=== PATIENT | male | born 1990 | race Two or more races ===

== ENCOUNTER 2023-11-08 11:56 | Outpatient (AMB) | payer BC, SELFPAY ==
--- NOTE | 2023-11-08 11:59 | A.OFFPC_ITS ---
Vital Signs 11/08/23 12:00 Height 6 ft Weight 244 lb BMI 33.1 BP 132/72 Blood Pressure Location Lt brachial Position Sitting Pulse 74 Pulse Source Pulse Oximeter Pulse Oximetry (%) 98 Oxygen Delivery Method Room Air Intake Visit Reasons: Est Care/Requesting Annual PE Intake Note: pt is here for PE Area Development Consultant Required: No Accompanied by: Self / Same As Patient Allergies No Known Allergies Allergy (Verified 11/08/23 12:11) Medication List - Last Reconciled 11/08/23 by CONSTANZA Garcia candesartan 16 mg PO DAILY Tobacco use date assessed: 11/08/23 Dental Screening Dental Screen Date: 11/08/23 Did you have a dental visit in the last 12 months?: Yes Did you have a dental problem in the last 6 months where you did not have access to dental care?: No Was dental information given to patient?: Patient has dentist HPI HPI Comments History of Present Illness Details Patient is a 33-year-old male who I am meeting for the 1st time. Patient is here for physical exam. Past medical history of history for hypertension which is currently controlled. Patient is up-to-date with influenza vaccine. Patient will send information from previous provider. Patient has no complaints at this time. [facility] Medical History Hydronephrosis Surgical History No pertinent past surgical history Family History Mother Hypertension Father No problems noted. Social History Housing: Apartment Alcohol intake: never Patient Tobacco Use Status: Never used Tobacco e-Cigarette/Vaping Use: Never Used service: No Current occupational status: employed Current occupation: [employer] Current occupational exposures/hazards: No Cognitive needs: No Hearing needs: No Vision needs: No Questionnaire PHQ-9 Over the last 2 weeks, how often have you been bothered by any of the following problems? 1. Little interest or pleasure in doing things: not at all 2. Feeling down, depressed, or hopeless: not at all 3. Trouble falling or staying asleep, or sleeping too much: not at all 4. Feeling tired or having little energy: not at all 5. Poor appetite or overeating: not at all 6. Feeling bad about yourself - or that you are a failure or have let yourself or your family down: not at all 7. Trouble concentrating on things, such as reading the newspaper or watching television: not at all 8. Moving or speaking so slowly that other people could have noticed. Or the opposite - being so fidgety or restless that you have been moving around a lot more than usual: not at all 9. Thoughts that you would be better off or of hurting yourself in some way: not at all Total score: 0 Depression Screening Interpretation: Negative Depression Screening Done: Yes 21808 - PHQ-9 Billing: Yes Source: Developed by Drs. Tien Estrada, Jaida Barros, Missael Jacobson and colleagues, with an educational guilherme from [employer]. Thrive Questionnaire Date Thrive assessed: 11/08/23 I am a: Patient What is your living situation today?: I have a steady place to live Within the past 12 months, did the food you bought not last and you didn't have the money to get more?: Never true Within the past 12 months, did you worry whether your food would run out before you got money to buy more?: Never true Do you have trouble paying for medicines?: No Do you have trouble getting transportation to medical appointments?: No Do you have trouble paying your heating and electricity bill?: No Do you have trouble taking care of your child, family member or friend?: No Do you have trouble with day-to-day activities such as bathing, preparing meals, shopping, managing finances, etc.?: No Are you currently unemployed and looking for a job?: No Are you interested in more education?: No Please select the resources that you would like help with: None Currently or been in a relationship where the following occur: no concerns reported THRIVE Score: 0 AUDIT C Alcohol Use Questionnaire (AUDIT-C) 1. How often do you have a drink containing alcohol?: Never 3. How often do you have six or more drinks on one occasion?: Never Total Score: 0 Score Reviewed/Action Taken: Yes ANTHONY-7 AMB Questionnaire ANTHONY-7 Date ANTHONY - 7 assessed: 11/08/23 Feeling nervous, anxious, or on edge: 0 = Not at all Not being able to stop or control worryin = Not at all Worrying too much about different things: 0 = Not at all Trouble relaxin = Not at all Being so restless that it is hard to sit still: 0 = Not at all Becoming easily annoyed or irritable: 0 = Not at all Feeling afraid as if something awful might happen: 0 = Not at all Total ANTHONY-7 score (0-4 normal; 5-9 mild; 10-14 moderate; 15-21 severe): 0 Source: Developed by Drs. Tien Estrada, Jaida Barros, Missael Jacobson and colleagues, with an educational guilherme from [employer]. ANTHONY-7 Assessment Billing ANTHONY-7 Assessment Tool: ANTHONY-7 Assessment 82764 Review of Systems Const All systems reviewed & are unremarkable except as noted in HPI and below Physical exam (Primary Care) Vital Signs: Last Vital Signs Pulse 74 11/08/23 12:00 BP 132/72 11/08/23 12:00 Pulse Ox 98 11/08/23 12:00 Oxygen Delivery Method Room Air 11/08/23 12:00 Care Plan Goal for BP management: Blood pressure stable BMI result Body Mass Index 33.1 Tobacco/Smoking Status: Tobacco use Status Tobacco use date assessed 11/08/23 11/08/23 12:06 Patient Tobacco Use Status Never used Tobacco 11/08/23 12:06 e-Cigarette/Vaping Use Never Used 11/08/23 12:06 PHQ-9: PHQ-9 Score PHQ-9: Total score 0 11/08/23 12:06 Depression Screening Interpretation: Negative Thrive Assessment: Date of Thrive Assessment Date Thrive assessed 11/08/23 11/08/23 12:06 Currently or been in a relationship where the following occur: no concerns reported Forms completed: Health Care Proxy (Patient taking for home to complete) Const General: cooperative and no acute distress Nutritional Appearance: overweight Orientation/consciousness: patient oriented x3 Limitations: no limitations HENMT Head: Yes normal to inspection, Yes normocephalic and Yes atraumatic Ears: hearing grossly normal bilaterally and TM's normal bilaterally General nose exam: Normal external nose present Face and sinus: Yes normal facial exam Mouth: Normal oral and palatal mucosa present Eyes General: appearance normal, both eyes and all related structures Sclerae: sclerae normal Pupils: Equal, round and reactive pupils present EOM: EOMs intact bilaterally Direct Ophthalmoscopy: normal light reflex and no photophobia Neck Neck: Yes normal visual inspection, Yes full ROM and Yes no lymphadenopathy Thyroid: Thyroid normal Carotids: normal carotid upstroke Lymphatic: no lymphadenopathy noted Chest Chest palpation & inspection: normal inspection of the chest Resp Auscultation: clear to auscultation bilaterally Cardio Rate: regular rate Rhythm: regular rhythm Heart sounds: S1 normal heart sound present and S2 normal heart sound present Peripheral pulses: Peripheral pulses 2+ throughout GI Inspection: Yes normal to inspection Palpation (GI): Soft to palpation and nontender Auscultation: normal bowel sounds General: Yes no CVA tenderness Back/Spine/Pelvis Back: no CVA tenderness Cervical Spine: normal cervical lordosis Thoracic/Lumbar Spine: thoracic and lumbar spine normal to inspection Skin General skin exam: no rashes or lesions noted Neuro General: patient oriented x3, CN's II-XI intact bilaterally and deep tendon reflexes 2+ bilaterally Cranial nerves: Yes CN's II-XII intact bilaterally and Yes Equal, round and reactive pupils present Gait exam (Neuro): Normal gait present Motor exam (neuro): 5/5 motor strength present throughout Romberg Test: Negative Extrem General: Yes normal to inspection and Yes full ROM Psych Attitude: cooperative Thought process: Normal thought process present Thought content: Normal thought content present Insight: Good insight present (Psych) Judgement: Good judgement present (Psych) Assessment and Plan Assessment & Plan (1) Encounter for physical examination: Comment: Will draw fasting labs. Code(s): Z00.00 - Encounter for general adult medical examination without abnormal findings (2) Hypertension: Comment: Patient has hypertension currently controlled, currently taking Candesartan. Code(s): I10 - Essential (primary) hypertension Qualifiers: Hypertension type: primary hypertension Qualified Code(s): I10 - Essential (primary) hypertension Plan: Draw labs Plan Follow-up for any problems. Orders: Orders Vitamin D 25-OH (D2 and D3) 11/09/23 Z13.21 - Encounter for screening for nutritional disorder Vitamin B6 11/09/23 Z13.21 - Encounter for screening for nutritional disorder Vitamin B12 11/09/23 Z13.21 - Encounter for screening for nutritional disorder UA CC w/rflx Micro + Cult 11/09/23 Z13.89 - Encounter for screening for other disorder TSH reflex Free T4 11/09/23 Z13.29 - Encounter for screening for other suspected endocrine disorder Comprehensive Met. Panel 11/09/23 Z91.89 - Other specified personal risk factors, not elsewhere classified Complete Blood Count Auto Diff 11/09/23 Z13.0 - Encounter for screening for diseases of the blood and blood-forming organs and certain disorders involving the immune mechanism Lipid Panel 11/09/23 Z13.220 - Encounter for screening for lipoid disorders Hemoglobin A1c 11/09/23 Z13.1 - Encounter for screening for diabetes mellitus Coding Level of Care Code New Pt Prev Care [id number] Diagnoses Encounter for physical examination Z00.00 Primary hypertension I10 Hypertension type: primary hypertension Additional Codes ANTHONY-7 Assessment Billing - ANTHONY-7 Assessment Tool: ANTHONY-7 Assessment [id number] ([id number]) Time Spent (min) 26
[2023-11-08 12:00] VITALS: BP 132/72; PULSE 74; O2SAT 98; BMI 33.1
== END 2023-11-08 14:02 | disposition home or self-care (01) ==
LOC: HO.HMGC 11:56
PROVIDERS: Visit Provider Nurse Practitioner Primary Care
DX: Z00.00 Encounter for general adult medical examination without abnormal findings (principal); I10 Essential (primary) hypertension
CPT/HCPCS: 99385

== ENCOUNTER 2023-11-09 07:27 | Outpatient (REF) | payer BC, SELFPAY ==
[2023-11-09 10:30] LABS: MANUAL DIFF FLAG NO
[2023-11-09 10:35] LABS: Basophils Percent Auto 0.4 % (0-2); Eosinophils Absolute Auto 0.1 X10*3/uL (0.0-0.4); Eosinophils Percent Auto 1.7 % (0-4); Hematocrit 44.1 % (42.0-52.0); Hemoglobin 14.1 g/dl (14.0-18.0); Imm Gran Abs Auto 0.01 X10*3/uL (0.00-0.03); Imm Gran Pct Auto 0.1 % (0.0-0.4); Lymphocytes Absolute Auto 3.5 X10*3/uL (1.2-4.9); Lymphocytes Percent Auto 46.4 % (20-40); Mean Corpuscular Hemoglobin 27.6 pg (27.0-33.0); Mean Corpuscular Volume 86.3 fL (80.0-98.0); Mean Platelet Volume 10.5 fL (9.4-12.4); Monocytes Absolute Auto 0.6 X10*3/uL (0.1-1.2); Monocytes Percent Auto 7.5 % (2-11); Neutrophils Absolute Auto 3.3 x10*3/uL (2.0-8.3); Neutrophils Percent Auto 43.9 % (45-73); Platelet Count 242 X10*3/uL (160-400); Red Blood Count 5.11 X10*6/uL (4.60-5.80); Red Cell Distribution Width 12.8 % (11.0-16.0); White Blood Count 7.4 X10*3/uL (4.8-10.8)
[2023-11-09 10:44] LABS: Appearance Urine Turbid; Color Urine Yellow; Glucose Urine UA Negative (Negative); Leukocyte Esterase Urine Large (3+) (Negative); Nitrite Urine Negative (Negative); PH 5.5 (5.0-9.0); Specific Gravity - Urine 1.015 (1.005-1.025); UMIC TRIGGER UACC YES; Urine Blood Small (1+) (Negative); Urine Ketones Negative (Negative); Urine Protein Trace mg/dL (Neg-Trace)
[2023-11-09 10:44] LABS: Estimated Average Glucose 111 mg/dL; Hemoglobin A1c % 5.5 % (<6.0)
[2023-11-09 10:56] LABS: Alanine Aminotransferase 30 U/L (0-40); Albumin Level 4.2 g/dL (3.5-5.0); Alkaline Phosphatase 105 U/L (39-117); Anion Gap 13 (12-20); Aspartate Amino Transferase 23 U/L (5-37); Bilirubin Total 0.3 mg/dL (0.0-1.0); Blood Urea Nitrogen 12 mg/dL (9-16); Calcium 9.7 mg/dL (8.4-10.2); Carbon Dioxide 24 mmol/L (22-29); Chloride 107 mmol/L (96-108); Cholesterol 143 mg/dL (<200); Estimated Glomerular Filt Rate > 60; Glucose Random 101 mg/dL (60-115); HDL Cholesterol 38 mg/dL (>40); LDL Cholesterol Calculated 75 mg/dL (<100); Potassium 3.9 mmol/L (3.3-5.1); Sodium 140 mmol/L (135-145); Total Protein 7.9 g/dL (6.5-8.0); Triglycerides 152 mg/dL (<150)
[2023-11-09 11:10] LABS: Bacteria Urine 1+ (None Seen); Hyaline Casts Urine 0-2 /LPF (0-2); RBC Urine 0-2 /HPF (0-2); Squamous Epithelial Cell Urine 0-2 /HPF (0-2); UACC Culture Trigger YES; WBC Urine >50 /HPF (0-5)
[2023-11-09 11:13] LABS: Vitamin B12 243 pg/mL (200-900)
[2023-11-13 16:13] LABS: Vitamin D 25-OH, D2 <4 ng/mL; Vitamin D 25-OH, D3 10 ng/mL; Vitamin D 25-OH, Total 10 ng/mL (30-100)
[2023-11-16 06:24] LABS: Vitamin B6 9.5 ng/mL (2.1-21.7)
== END 2023-11-09 07:28 | disposition home or self-care (01) ==
LOC: HO.HMGCLDS 07:27
PROVIDERS: Visit Provider Nurse Practitioner Primary Care
DX: Z13.21 Encounter for screening for nutritional disorder (principal); Z13.89 Encounter for screening for other disorder; Z91.89 Other specified personal risk factors, not elsewhere classified; Z13.0 Encounter for screening for diseases of the blood and blood-forming organs and certain disorders involving the immune mechanism; Z13.29 Encounter for screening for other suspected endocrine disorder; Z13.1 Encounter for screening for diabetes mellitus; Z13.220 Encounter for screening for lipoid disorders; Z00.00 Encounter for general adult medical examination without abnormal findings
CPT/HCPCS: 36415; 80053; 80061; 81001; 82306; 82607; 83036; 84207; 84443; 85025; 87086; 87088

== ENCOUNTER → 2024-05-09 15:33 | Outpatient (BNVA) | payer BC, SELFPAY | PROVIDERS: PCP Internal Medicine ==

== ENCOUNTER → 2024-07-25 08:06 | Outpatient (BNVA) | payer OTHER, SELFPAY | PROVIDERS: PCP Internal Medicine ==

== ENCOUNTER 2024-09-05 07:28 | Outpatient (REF) | payer OTHER, SELFPAY ==
[2024-09-05 10:35] LABS: Appearance Urine Cloudy; Color Urine Yellow; Glucose Urine UA Negative (Negative); Leukocyte Esterase Urine Large (3+) (Negative); Nitrite Urine Negative (Negative); PH 5.5 (5.0-9.0); Specific Gravity - Urine 1.015 (1.005-1.025); UMIC TRIGGER UACC YES; Urine Blood Trace (Negative); Urine Ketones Negative (Negative); Urine Protein Negative (Neg-Trace)
[2024-09-05 10:50] LABS: Bacteria Urine None Seen (None Seen); Hyaline Casts Urine 0-2 /LPF (0-2); RBC Urine 0-2 /HPF (0-2); Squamous Epithelial Cell Urine 0-2 /HPF (0-2); UACC Culture Trigger YES; WBC Clumps Urine Present; WBC Urine >50 /HPF (0-5)
== END 2024-09-05 07:29 | disposition home or self-care (01) ==
LOC: HO.HMGCLDS 07:28
PROVIDERS: PCP Internal Medicine; Visit Provider Internal Medicine
DX: R30.0 Dysuria (principal)
CPT/HCPCS: 81001; 87086

== ENCOUNTER 2024-12-05 10:58 | Outpatient (AMB) | payer OTHER, SELFPAY ==
--- NOTE | 2024-12-05 11:04 | MHC.PC.OV ---
Vital Signs 12/05/24 11:14 12/05/24 11:35 Weight 267 lb 2 oz BP 148/102 H 135/80 Blood Pressure Location Rt brachial Lt brachial Position Sitting Sitting Respiration 20 Pulse 97 Pulse Source Pulse Oximeter Temp 97.5 F Temp Source Oral Pulse Oximetry (%) 94 Oxygen Delivery Method Room Air Intake Visit Reasons: PE Intake Note: Pt is here for PE. Allergies No Known Allergies Allergy (Verified 12/05/24 11:37) Medication List - Last Reconciled 12/05/24 by Lou Jacobs MD candesartan 16 mg PO DAILY clotrimazole-betamethasone 1-0.05 % 1 appl topical BID Tobacco use date assessed: 12/05/24 Dental Screening Dental Screen Date: 12/05/24 Did you have a dental visit in the last 12 months?: Yes Did you have a dental problem in the last 6 months where you did not have access to dental care?: No Was dental information given to patient?: Patient has dentist HPI PE HPI Details 34-year-old male with history of hypertension currently on candesartan 16 mg daily, has hypertriglyceridemia, and history of vitamin-D deficiency, here today for his physical exam. - He reports his blood pressure has been inconsistent, with a reading today of 130/[address] - Despite consistent exercise for three months, he has not observed the expected weight loss. 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 -has history of elevated triglycerides on last blood check as well as low vitamin-D levels, does not take any vitamin-D supplements and has been avoiding the sun -complains of recurrent slightly scaly erythematous rash on the side of his nose and mouth, has been prescribed clotrimazole-betamethasone cream by his drawer in jacquard loom in the past, uses it only sparingly and as needed, would like a refill. [facility] Medical History (Updated 12/05/24 @ 12:05 by Lou Jacobs MD) Facial dermatitis History of ureteropelvic junction repair Hx of recurrent urinary tract infection Labile hypertension Vitamin D deficiency Hypertriglyceridemia Essential hypertension Hydronephrosis Surgical History (Updated 12/05/24 @ 11:54 by Lou Jacobs MD) History of pyeloplasty No pertinent past surgical history Family History Mother Hypertension Father No problems noted. Social History (Updated 12/06/24 @ 23:29 by Lou Jacobs MD) Housing: Apartment Alcohol intake: never Patient Tobacco Use Status: Never used Tobacco e-Cigarette/Vaping Use: Never Used service: No Current occupational status: employed Current occupation: [employer] Current occupational exposures/hazards: No Cognitive needs: No Hearing needs: No Vision needs: No Questionnaire PHQ-9 Over the last 2 weeks, how often have you been bothered by any of the following problems? 1. Little interest or pleasure in doing things: not at all 2. Feeling down, depressed, or hopeless: not at all 3. Trouble falling or staying asleep, or sleeping too much: not at all 4. Feeling tired or having little energy: several days 5. Poor appetite or overeating: several days 6. Feeling bad about yourself - or that you are a failure or have let yourself or your family down: not at all 7. Trouble concentrating on things, such as reading the newspaper or watching television: not at all 8. Moving or speaking so slowly that other people could have noticed. Or the opposite - being so fidgety or restless that you have been moving around a lot more than usual: not at all 9. Thoughts that you would be better off or of hurting yourself in some way: not at all Total score: 2 Depression Screening Interpretation: Negative Depression Screening Done: Yes 69061 - PHQ-9 Billing: Yes Source: Developed by Drs. Tien Estrada, Jaida Barros, Missael Jacobson and colleagues, with an educational guilherme from [employer] ([email or web address]). Thrive Questionnaire Date Thrive assessed: 11/28/24 I am a: Patient What is your living situation today?: I choose not to answer this question Within the past 12 months, did the food you bought not last and you didn't have the money to get more?: Sometimes True Within the past 12 months, did you worry whether your food would run out before you got money to buy more?: Sometimes True Do you have trouble paying for medicines?: I choose not to answer this question Do you have trouble getting transportation to medical appointments?: I choose not to answer this question Do you have trouble paying your heating and electricity bill?: I choose not to answer this question Do you have trouble taking care of your child, family member or friend?: No Do you have trouble with day-to-day activities such as bathing, preparing meals, shopping, managing finances, etc.?: I choose not to answer this question Are you currently unemployed and looking for a job?: I choose not to answer this question Are you interested in more education?: I choose not to answer this question Please select the resources that you would like help with: Food and Utilities Currently or been in a relationship where the following occur: I choose not to answer THRIVE Score: 2 AUDIT C Alcohol Use Questionnaire (AUDIT-C) 1. How often do you have a drink containing alcohol?: Never 2. How many drinks containing alcohol do you have on a typical day when you are drinking?: 1 or 2 3. How often do you have six or more drinks on one occasion?: Never Total Score: 0 ANTHONY-7 AMB Questionnaire ANTHONY-7 Date ANTHONY - 7 assessed: 11/08/23 Feeling nervous, anxious, or on edge: 0 = Not at all Not being able to stop or control worryin = Several days Worrying too much about different things: 1 = Several days Trouble relaxin = Several days Being so restless that it is hard to sit still: 0 = Not at all Becoming easily annoyed or irritable: 0 = Not at all Feeling afraid as if something awful might happen: 0 = Not at all Total ANTHONY-7 score (0-4 normal; 5-9 mild; 10-14 moderate; 15-21 severe): 3 Source: Developed by Drs. Tien Estrada, Jaida Barros, Missael Jacobson and colleagues, with an educational guilherme from [employer] ([email or web address]). Review of Systems Const Denies body aches, Denies fatigue, Denies headache(s) and Denies weakness Eyes Denies change in vision ENT Denies dizziness, Denies headache(s), Denies nasal congestion, Denies nasal discharge and Denies sore throat Card Denies chest pain, Denies lightheadedness, Denies palpitations and Denies dyspnea Resp Denies chest congestion, Denies cough, Denies dyspnea and Denies wheezing GI Denies abdominal pain, Denies change in bowel habits and Denies heartburn Denies hematuria, Denies difficulty urinating, Denies dysuria, Denies urinary frequency and Denies urinary urgency Musc Reports no additional complaints Skin/Breast Reports as per HPI Neuro Denies dizziness, Denies headache(s) and Denies weakness Psych Reports no additional complaints Endo Denies fatigue, Denies polydipsia, Denies polyuria and Denies palpitations Rashel/Lymph Denies easy bruising Aller/Immun Denies seasonal rhinorrhea and Denies wheezing Physical exam (Primary Care) Vital Signs: Last Vital Signs Temp 97.5 F 12/05/24 11:14 Pulse 97 12/05/24 11:14 Resp 20 12/05/24 11:14 BP 135/80 12/05/24 11:35 Pulse Ox 94 12/05/24 11:14 Oxygen Delivery Method Room Air 12/05/24 11:14 Care Plan Goal for BP management: Referred for 24 hour blood pressure monitoring to nephrology clinic Tobacco/Smoking Status: Tobacco use Status Tobacco use date assessed 12/05/24 12/05/24 11:20 Patient Tobacco Use Status Never used Tobacco 12/05/24 11:06 e-Cigarette/Vaping Use Never Used 12/05/24 11:06 PHQ-9: PHQ-9 Score PHQ-9: Total score 2 12/06/24 23:24 Depression Screening Interpretation: Negative Thrive Assessment: Date of Thrive Assessment Date Thrive assessed 11/28/24 12/05/24 11:06 Currently or been in a relationship where the following occur: I choose not to answer Advance Care Planning discussion: Completed/Scanned Date of discussion: 12/05/24 Who was present: Patient Forms completed: Health Care Proxy Time spent: 16-45 minutes Actual minutes spent: 2 Const General: no acute distress and alert Orientation/consciousness: patient oriented x3 HENMT Head: Yes normocephalic Ears: external ears normal, TM's normal bilaterally and EAC's normal General nose exam: Normal external nose present and No nasal discharge present Face and sinus: Yes face symmetric Mouth: Normal oral and palatal mucosa present, lip normal, tongue normal, oropharynx normal and moist mucous membranes Eyes General: appearance normal, both eyes and all related structures Eyelids: Yes eyelids normal Conjunctivae: conjunctivae normal Sclerae: sclerae normal Pupils: Equal, round and reactive pupils present EOM: EOMs intact bilaterally Neck Neck: Yes full ROM, Yes no lymphadenopathy and Yes supple Thyroid: Thyroid normal Resp Effort & Inspection: normal respiratory effort and able to speak in complete sentences Auscultation: clear to auscultation bilaterally Cardio Rate: regular rate Rhythm: regular rhythm Heart sounds: S1 normal heart sound present and S2 normal heart sound present GI Palpation (GI): Soft to palpation, nontender, no guarding and no masses Auscultation: normal bowel sounds General: Yes no CVA tenderness Male General Exam: Yes normal external exam and No hernia Scrotum: no inguinal hernias Back/Spine/Pelvis Back: no CVA tenderness and No back tenderness Skin General skin exam: no rashes or lesions noted Neuro General: patient oriented x3, gait normal, moves all extremities, Normal light touch and pain sensation, no focal motor deficits and CN's II-XI intact bilaterally Cranial nerves: Yes Equal, round and reactive pupils present Cognition (Neuro): normal cognition Gait exam (Neuro): Normal gait present Motor exam (neuro): 5/5 motor strength present throughout Extrem General: Yes normal to inspection, Yes full ROM, Yes no joint enlargement, Yes no pedal edema and Yes normal gait Psych Appearance: grossly normal and well kempt Mental Status: mental status grossly normal Speech and movement: Normal speech and movement present Affect: normal affect Attitude: cooperative Thought process: Normal thought process present Thought content: Normal thought content present Coding Level of Care Code Est Pt Prev Care 18-39y([id number]) Diagnoses Essential hypertension I10 Annual visit for general adult medical examination with abnormal findings Z00.01 Labile hypertension R09.89 Hypertriglyceridemia E78.1 Vitamin D deficiency E55.9 Hx of recurrent urinary tract infection Z87.440 Facial dermatitis L30.9 Additional Codes PHQ-9 - 40399 - PHQ-9 Billing: Yes ([id number]) Vital Signs *Quality* - Advance Care Planning discussion: Completed/Scanned ([id number]) Vital Signs *Quality* - Time spent: 16-45 minutes ([id number]) Assessment & Plan Assessment & Plan (1) Essential hypertension: Code(s): I10 - Essential (primary) hypertension Category: Medical Plan: Has been noted to have labile hypertension currently on candesartan. Referred to Nephrology Clinic for possible 24 hour blood pressure monitoring (2) Annual visit for general adult medical examination with abnormal findings: Code(s): Z00.01 - Encounter for general adult medical examination with abnormal findings Plan: Will check appropriate labs. Recommended dental visit every 6 months and regular eye exams, at least every 2 years. Take adequate calcium in diet and vitamin-D 3 at 2000 IU per cap once a day, in addition to weight-bearing exercises to help maintain good muscle tone and weight control. - Continue working on reducing sodium in your diet to help lower blood pressure. - Maintain regular exercise routine but consider modifications with a drug and alcohol counsellor. - Increase sun exposure for 15 minutes daily without sunscreen for vitamin D improvement. - Contact the office if no appointment is scheduled after ten days for nephrology referral or if you are not contacted for lab result discussions. (3) Labile hypertension: Code(s): R09.89 - Other specified symptoms and signs involving the circulatory and respiratory systems Category: Medical Plan: Referred to nephrology clinic for further evaluation management, may need a 24 hour ambulatory blood pressure monitor (4) Hypertriglyceridemia: Code(s): E78.1 - Pure hyperglyceridemia Category: Medical Plan: fasting lab orders to check lipids . Recommended adherence to low-cholesterol diet and regular exercise, at least 30 minutes 3 to 4 times a week. Advised patient to make healthy food choices, eat more fruits, vegetables, whole grains, wild caught fish and low-fat dairy. Limit amount of meat and fried or fatty food products, as well as processed foods and fast foods. (5) Vitamin D deficiency: Code(s): E55.9 - Vitamin D deficiency, unspecified Category: Medical Plan: Ordered vitamin-D level checked (6) Hx of recurrent urinary tract infection: Code(s): Z87.440 - Personal history of urinary (tract) infections Category: Medical Plan: Ordered a urinalysis with reflex culture and sensitivity (7) Facial dermatitis: Code(s): L30.9 - Dermatitis, unspecified Category: Medical Plan: Prescription sent for clotrimazole-betamethasone cream 1-0.05% applied sparingly to affected areas once a day for no more than 10 days at a time as needed Plan Patient was informed and verbally consented to the use of an Ambien scribe for Clinic note documentation for this visit Orders: Orders Complete Blood Count Auto Diff 12/05/24 E55.9 - Vitamin D deficiency, unspecified, E78.1 - Pure hyperglyceridemia, R09.89 - Other specified symptoms and signs involving the circulatory and respiratory systems Basic Metabolic Panel Fasting 12/05/24 E55.9 - Vitamin D deficiency, unspecified, E78.1 - Pure hyperglyceridemia, R09.89 - Other specified symptoms and signs involving the circulatory and respiratory systems Vitamin D 25-OH Total 12/05/24 E55.9 - Vitamin D deficiency, unspecified, E78.1 - Pure hyperglyceridemia, R09.89 - Other specified symptoms and signs involving the circulatory and respiratory systems Vitamin B12 and Folate 12/05/24 E55.9 - Vitamin D deficiency, unspecified, E78.1 - Pure hyperglyceridemia, R09.89 - Other specified symptoms and signs involving the circulatory and respiratory systems Aspartate Amino Transferase 12/05/24 E55.9 - Vitamin D deficiency, unspecified, E78.1 - Pure hyperglyceridemia, R09.89 - Other specified symptoms and signs involving the circulatory and respiratory systems Alanine Aminotransferase 12/05/24 E55.9 - Vitamin D deficiency, unspecified, E78.1 - Pure hyperglyceridemia, R09.89 - Other specified symptoms and signs involving the circulatory and respiratory systems UA CC w/rflx Micro + Cult 12/05/24 Z87.440 - Personal history of urinary (tract) infections Lipid Panel 12/05/24 E55.9 - Vitamin D deficiency, unspecified, E78.1 - Pure hyperglyceridemia, R09.89 - Other specified symptoms and signs involving the circulatory and respiratory systems Hemoglobin A1c 12/05/24 E55.9 - Vitamin D deficiency, unspecified, E78.1 - Pure hyperglyceridemia, R09.89 - Other specified symptoms and signs involving the circulatory and respiratory systems TSH reflex Free T4 12/05/24 E55.9 - Vitamin D deficiency, unspecified, E78.1 - Pure hyperglyceridemia, R09.89 - Other specified symptoms and signs involving the circulatory and respiratory systems Referrals Nephrology Referral R09.89 - Other specified symptoms and signs involving the circulatory and respiratory systems Medications: New clotrimazole-betamethasone 1-0.05 % 1 appl topical BID 10 days 15 grams 1RF L30.9 - Dermatitis, unspecified
[2024-12-05 11:14] VITALS: BP 148/102; PULSE 97; RESP 20; TEMP 36.4; O2SAT 94
[2024-12-05 11:35] VITALS: BP 135/80
== END 2024-12-05 12:10 | disposition home or self-care (01) ==
PROVIDERS: PCP Internal Medicine; Visit Provider Internal Medicine
DX: I10 Essential (primary) hypertension (principal); Z00.01 Encounter for general adult medical examination with abnormal findings; R09.89 Other specified symptoms and signs involving the circulatory and respiratory systems; E78.1 Pure hyperglyceridemia; E55.9 Vitamin D deficiency, unspecified; Z87.440 Personal history of urinary (tract) infections; L30.9 Dermatitis, unspecified; Z00.00 Encounter for general adult medical examination without abnormal findings

== ENCOUNTER → 2024-12-05 10:58 | Outpatient (BNVA) | payer OTHER, SELFPAY | PROVIDERS: PCP Internal Medicine; Visit Provider Internal Medicine | DX: Z00.01 Encounter for general adult medical examination with abnormal findings (principal); E78.1 Pure hyperglyceridemia; E55.9 Vitamin D deficiency, unspecified; I10 Essential (primary) hypertension; R09.89 Other specified symptoms and signs involving the circulatory and respiratory systems; L30.9 Dermatitis, unspecified; Z87.440 Personal history of urinary (tract) infections | CPT/HCPCS: 96127 ==

== ENCOUNTER 2024-12-08 07:14 | Outpatient (REF) | payer OTHER, SELFPAY ==
[2024-12-08 10:05] LABS: MANUAL DIFF FLAG NO
[2024-12-08 10:22] LABS: Basophils Percent Auto 0.3 % (0-2); Eosinophils Absolute Auto 0.1 X10*3/uL (0.0-0.4); Eosinophils Percent Auto 1.1 % (0-4); Hematocrit 42.5 % (42.0-52.0); Hemoglobin 13.7 g/dl (14.0-18.0); Imm Gran Abs Auto 0.02 X10*3/uL (0.00-0.03); Imm Gran Pct Auto 0.2 % (0.0-0.4); Lymphocytes Absolute Auto 3.1 X10*3/uL (1.2-4.9); Lymphocytes Percent Auto 35.9 % (20-40); Mean Corpuscular HGB Conc 32.2 g/dl (31.0-36.0); Mean Corpuscular Hemoglobin 27.6 pg (27.0-33.0); Mean Corpuscular Volume 85.7 fL (80.0-98.0); Mean Platelet Volume 10.9 fL (9.4-12.4); Monocytes Absolute Auto 0.6 X10*3/uL (0.1-1.2); Monocytes Percent Auto 6.3 % (2-11); Neutrophils Absolute Auto 4.9 x10*3/uL (2.0-8.3); Neutrophils Percent Auto 56.2 % (45-73); Platelet Count 240 X10*3/uL (160-400); Red Blood Count 4.96 X10*6/uL (4.60-5.80); White Blood Count 8.8 X10*3/uL (4.8-10.8)
[2024-12-08 10:23] LABS: Estimated Average Glucose 111 mg/dL; Hemoglobin A1C 130.0449 umol/L; Hemoglobin A1c % 5.5 % (<6.0); Total Hemoglobin (HGBA1C) 3536.4128 umol/L
[2024-12-08 10:31] LABS: Appearance Urine Turbid; Color Urine Yellow; Glucose Urine UA Negative (Negative); Leukocyte Esterase Urine Large (3+) (Negative); Nitrite Urine Negative (Negative); PH 5.5 (5.0-9.0); UMIC TRIGGER UACC YES; Urine Blood Small (1+) (Negative); Urine Ketones Negative (Negative); Urine Protein Trace mg/dL (Neg-Trace)
[2024-12-08 10:43] LABS: Bacteria Urine Trace (None Seen); Hyaline Casts Urine 0-2 /LPF (0-2); RBC Urine 0-2 /HPF (0-2); Squamous Epithelial Cell Urine 0-2 /HPF (0-2); UACC Culture Trigger YES; WBC Clumps Urine Present; WBC Urine >50 /HPF (0-5)
[2024-12-08 10:49] LABS: Alanine Aminotransferase 38 U/L (0-40); Anion Gap 13 (12-20); Aspartate Amino Transferase 33 U/L (5-37); Blood Urea Nitrogen 15 mg/dL (9-16); Carbon Dioxide 24 mmol/L (22-29); Chloride 109 mmol/L (96-108); Cholesterol 144 mg/dL (<200); Estimated Glomerular Filt Rate > 60; Glucose Fasting 97 mg/dL (60-99); HDL Cholesterol 38 mg/dL (>40); LDL Cholesterol Calculated 75 mg/dL (<100); Potassium 3.6 mmol/L (3.3-5.1); Sodium 142 mmol/L (135-145); Triglycerides 157 mg/dL (<150)
[2024-12-08 10:50] LABS: TSH reflex Free T4 2.62 uIU/mL (0.32-4.0); Vitamin D 25-OH Total 29.7 ng/mL (>30)
[2024-12-08 11:04] LABS: Folate 8.9 ng/mL (> or = 4.0); Vitamin B12 230 pg/mL (200-900)
== END 2024-12-08 07:15 | disposition home or self-care (01) ==
LOC: HO.HMGCLDS 07:14
PROVIDERS: PCP Internal Medicine; Visit Provider Internal Medicine
DX: R09.89 Other specified symptoms and signs involving the circulatory and respiratory systems (principal); E55.9 Vitamin D deficiency, unspecified; E78.1 Pure hyperglyceridemia
CPT/HCPCS: 36415; 80048; 80061; 81001; 82306; 82607; 82746; 83036; 84443; 84450; 84460; 85025; 87086; 87088

== ENCOUNTER 2024-12-11 08:34 | Outpatient (AMB) | payer OTHER, SELFPAY ==
[2024-12-11 10:04] VITALS: BMI 37.3
--- NOTE | 2024-12-11 10:04 | MHC.PC.OV ---
Vital Signs 12/11/24 10:04 Height 5 ft 11 in Weight 267 lb 2 oz BMI 37.3 Intake Visit Reasons: lab results Allergies No Known Allergies Allergy (Verified 12/05/24 11:37) Medication List - Last Reconciled 12/11/24 by Kris Choe MD candesartan 16 mg PO DAILY clotrimazole-betamethasone 1-0.05 % 1 appl topical BID 10 days Tobacco use date assessed: 12/05/24 Dental Screening Dental Screen Date: 12/05/24 HPI lab results HPI Details History - The patient is a 34-year-old male presenting with abnormal urinalysis results. - The patient has had recurrent urinary tract infections since childhood following a surgical procedure known as a pyeloplasty. - The latest urinalysis indicated signs of infection and the presence of a possible fungal component, which the patient may not feel due to the lack of symptoms commonly associated with UTIs. - The patient has been treated with antibiotics previously, with the last treatment being in early 2022. - The patient reports a history of asymptomatic abnormalities in urine tests, necessitating repeat antibiotics. - Additionally, the patient has noted significant weight gain, despite attempts at managing this through diet and exercise without positive results. Medical History: - Recurrent Urinary Tract Infections - History of childhood pyeloplasty Surgical History: - Pyeloplasty (childhood) Medications: - Bactrim (sulfamethoxazole) for urinary tract infections as per previous prescriptions Social History: - Reports engaging in regular morning exercise for 60 to 75 minutes - Attempts healthy eating, avoiding junk food and bread, focusing on fruits and vegetables - Reports difficulty in losing weight despite lifestyle modifications Diagnostic Results: - Urinalysis: Abnormal, indicating infection and possible fungal involvement Problem List - Recurrent Urinary Tract Infections - Fungal Infection (possible penile candidiasis) - Obesity (BMI 37.3) Patient Instructions - Take prescribed antibiotics for five days. - On day six, take the antifungal medication. - Repeat the urine test at your nephrology apt - Follow up with the scheduled kidney specialist appointment. - Engage with a dietary consultation as arranged. - we will set time time with nurse navigator for diet plan to lose wt Review of Systems - General: No fever no chills - Neurological: No headaches no dizziness - Ear nose throat: No sore throat no hearing difficulty no ear pain - Cardiovascular: No syncope, no chest pain, no palpitations - Gastrointestinal: No nausea vomiting or diarrhea [facility] Medical History (Updated 12/11/24 @ 11:19 by Kris Choe MD) Facial dermatitis History of ureteropelvic junction repair Hx of recurrent urinary tract infection Labile hypertension Vitamin D deficiency Hypertriglyceridemia Essential hypertension Hydronephrosis Surgical History (Updated 12/11/24 @ 11:19 by Kris Choe MD) History of pyeloplasty No pertinent past surgical history Family History Mother Hypertension Father No problems noted. Social History Housing: Apartment Alcohol intake: never Patient Tobacco Use Status: Never used Tobacco e-Cigarette/Vaping Use: Never Used service: No Current occupational status: employed Current occupation: [email or web address] Current occupational exposures/hazards: No Cognitive needs: No Hearing needs: No Vision needs: No Questionnaire Thrive Questionnaire Date Thrive assessed: 11/28/24 ANTHONY-7 AMB Questionnaire ANTHONY-7 Date ANTHONY - 7 assessed: 11/08/23 Source: Developed by Drs. Tien Estrada, Jaida Barros, Missael Jacobson and colleagues, with an educational guilherme from [employer]. Physical exam (Primary Care) BMI result Body Mass Index 37.3 Tobacco/Smoking Status: Tobacco use Status Tobacco use date assessed 12/05/24 12/11/24 10:06 Patient Tobacco Use Status Never used Tobacco 12/11/24 10:06 e-Cigarette/Vaping Use Never Used 12/11/24 10:06 Thrive Assessment: Date of Thrive Assessment Date Thrive assessed 11/28/24 12/11/24 10:06 Telehealth Telehealth Telehealth Platform: [facility] Location of provider rendering services: practice address Location of patient: address on file Patient Identification confirmed using: Name, : Yes Telehealth method: video Patient verbally consented to treatment: Yes Patient verbally consented to billing insurance company: Yes Patient informed of any privacy concerns related to visit: Yes Coding Level of Care Code Tele Est Pt Level 3 (19809) Diagnoses Recurrent UTI N39.0 Yeast UTI B37.49 History of pyeloplasty Z98.890; Z87.448 Time Spent (min) 20 Assessment & Plan Assessment & Plan (1) Recurrent UTI: Code(s): N39.0 - Urinary tract infection, site not specified Category: Medical (2) Yeast UTI: Code(s): B37.49 - Other urogenital candidiasis Category: Medical (3) History of pyeloplasty: Comment: left at age 9 y/o Code(s): Z98.890 - Other specified postprocedural states; Z87.448 - Personal history of other diseases of urinary system Category: Surgical Plan History - The patient is a 34-year-old male presenting with abnormal urinalysis results. - The patient has had recurrent urinary tract infections since childhood following a surgical procedure known as a pyeloplasty. - The latest urinalysis indicated signs of infection and the presence of a possible fungal component, which the patient may not feel due to the lack of symptoms commonly associated with UTIs. - The patient has been treated with antibiotics previously, with the last treatment being in early 2022. - The patient reports a history of asymptomatic abnormalities in urine tests, necessitating repeat antibiotics. - Additionally, the patient has noted significant weight gain, despite attempts at managing this through diet and exercise without positive results. Medical History: - Recurrent Urinary Tract Infections - History of childhood pyeloplasty Surgical History: - Pyeloplasty (childhood) Medications: - Bactrim (sulfamethoxazole) for urinary tract infections as per previous prescriptions Social History: - Reports engaging in regular morning exercise for 60 to 75 minutes - Attempts healthy eating, avoiding junk food and bread, focusing on fruits and vegetables - Reports difficulty in losing weight despite lifestyle modifications Diagnostic Results: - Urinalysis: Abnormal, indicating infection and possible fungal involvement Problem List - Recurrent Urinary Tract Infections - Fungal Infection (possible penile candidiasis) - Obesity (BMI 37.3) Patient Instructions - Take prescribed antibiotics for five days. - On day six, take the antifungal medication. - Repeat the urine test at your nephrology apt - Follow up with the scheduled kidney specialist appointment. - Engage with a dietary consultation as arranged. - we will set time time with nurse navigator for diet plan to lose wt Medications: Changed From sulfamethoxazole-trimethoprim 800-160 mg 1 tab PO Q12H 20 tabs 0RF To sulfamethoxazole-trimethoprim 800-160 mg (Bactrim DS) 1 tab PO Q12H 10 tabs 0RF 5 days From fluconazole 150 mg PO Q3D 2 tabs 0RF To fluconazole take it after finishing antibiotic 150 mg PO Q3D 1 tab 0RF 1 day
== END 2024-12-11 11:08 | disposition home or self-care (01) ==
LOC: HO.HMCC 08:34
PROVIDERS: PCP Internal Medicine; Visit Provider Internal Medicine
DX: N39.0 Urinary tract infection, site not specified (principal); Z98.890 Other specified postprocedural states; Z87.448 Personal history of other diseases of urinary system

== ENCOUNTER → 2024-12-11 08:34 | Outpatient (BNVA) | payer OTHER, SELFPAY | PROVIDERS: PCP Internal Medicine; Visit Provider Internal Medicine | DX: Z13.89 Encounter for screening for other disorder (principal) ==

== ENCOUNTER 2024-12-19 13:27 | Outpatient (AMB) | payer OTHER, SELFPAY ==
--- NOTE | 2024-12-19 13:29 | HO.NEPHOV ---
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 Hypertension since past 2 years; states its normal at home increases when under stress or doctors office. He also has hypokalemia with potassium of 3.6. has a history of pyeloplasty when he was a child. works as a [employer] [facility] Medical History Facial dermatitis History of ureteropelvic junction repair Hx of recurrent urinary tract infection Labile hypertension Vitamin D deficiency Hypertriglyceridemia Essential hypertension Hydronephrosis Surgical History History of pyeloplasty No pertinent past surgical history Family History Mother Hypertension Father No problems noted. Social History Housing: Apartment Alcohol intake: never Patient Tobacco Use Status: Never used Tobacco e-Cigarette/Vaping Use: Never Used service: No Current occupational status: employed Current occupation: [employer] Current occupational exposures/hazards: No Cognitive needs: No Hearing needs: No Vision needs: No Review of Systems Const Details: Const Denies body aches, Denies chills, Denies excessive sweating and Denies fatigue Eyes Denies blurry vision and Denies change in vision ENT Denies bleeding gums and Denies change in voice Card Denies chest pain and Denies leg ulcers Resp Denies cough and Denies excessive phlegm production GI Denies abdominal pain and Denies bloating Denies hematuria, Denies urinary frequency and Denies difficulty voiding Musc Denies abnormal gait Neuro Denies Neuro-related abnormal movements, Denies abnormal gait and Denies behavioral changes Psych Denies behavioral changes and Denies change in appetite Endo Denies change in body appearance, Denies cold intolerance, Denies excessive sweating and Denies fatigue Physical Exam Vital Signs: BMI result Body Mass Index 36.3 General: Not in any acute distress, comfortable, sitting on the chair Nutritional Appearance: well nourished and overweight Eyes: appearance normal, both eyes and all related structures; Alignment and Position: alignment normal and position normal Neck: No lymphadenopathy, no thyromegaly Resp: bilateral air entry equal, no added sounds present Cardio: Regular rate, regular rhythm; Heart sounds: S1 normal heart sound present and S2 normal heart sound present, no edema GI: soft, nontender, no guarding, no hepatosplenomegaly : bladder normal to inspection, bladder normal to palpation, no renal angle tenderness Skin: no rashes or lesions noted and elasticity normal Neuro: oriented to person, oriented to place, oriented to time and moves all extremities Results Reviewed Nephrology Results: Hgb 13.7 g/dl (14.0-18.0) L 12/08/24 WBC 8.8 X10*3/uL (4.8-10.8) 12/08/24 Plt Count 240 X10*3/uL (160-400) 12/08/24 Sodium 142 mmol/L (135-145) 12/08/24 Potassium 3.6 mmol/L (3.3-5.1) 12/08/24 Chloride 109 mmol/L (96-108) H 12/08/24 Carbon Dioxide 24 mmol/L (22-29) 12/08/24 BUN 15 mg/dL (9-16) 12/08/24 Creatinine 0.79 mg/dL (0.5-1.4) 12/08/24 Calcium 9.0 mg/dL (8.4-10.2) 12/08/24 Urine Protein Trace mg/dL (Neg-Trace) 12/08/24 Assessment & Plan Assessment & Plan (1) Labile hypertension: Code(s): R09.89 - Other specified symptoms and signs involving the circulatory and respiratory systems Category: Medical (2) Essential hypertension: Code(s): I10 - Essential (primary) hypertension Category: Medical Plan Patient regularly checks his blood pressure at his home and is usually around: 110- 120s at office is usually around:130/70mmhg. Currently he is on candesartan and has good compliance to medication. Mom has HTN, one of the two brothers has HTN. He has a smoker, h/o no CAD, no stroke, lipids are under control, no family history of coronary artery disease. His relative risk reduction of major cardiovascular events is low with 10 year risk of 1.3% and 30 years risk of 8.9%. plan: - target SBP <140/90 given his low risk for CVD. - will stop candesartan as it will help with better interpretation of lab works, will get 24 hr blood pressure monitoring next week off medication. - weight reduction, low salt diet, smoking cessation - will get plasma aldosterone and renin levels to look for the ratio off candesartan, TSH ordered - will get renal artery dopplers to rule out renal artery stenosis is renin levels are increased. - will plan for 24 hr sodium, aldosterone and creatinine excretion if needed in the future - avoid any NSAID intake, excessive decongestant intake, herbal preparations intake Orders: Orders AMB 24 HR B/P Monitor PLACEMENT 1 Week R09.89 - Other specified symptoms and signs involving the circulatory and respiratory systems TSH reflex Free T4 1 Month I10 - Essential (primary) hypertension, R09.89 - Other specified symptoms and signs involving the circulatory and respiratory systems Aldost/Renin 1 Month I10 - Essential (primary) hypertension, R09.89 - Other specified symptoms and signs involving the circulatory and respiratory systems Basic Metabolic Panel 1 Month I10 - Essential (primary) hypertension, R09.89 - Other specified symptoms and signs involving the circulatory and respiratory systems Microalbumin, Random (w Creat) 1 Month I10 - Essential (primary) hypertension, R09.89 - Other specified symptoms and signs involving the circulatory and respiratory systems Coding Level of Care Code New Pt Level 4 (72138) Diagnoses Labile hypertension R09.89 Essential hypertension I10
[2024-12-19 13:30] VITALS: BP 130/84; PULSE 94; O2SAT 97; BMI 36.3
== END 2024-12-19 14:17 | disposition home or self-care (01) ==
LOC: HO.HKA 13:28
PROVIDERS: PCP Internal Medicine; Visit Provider Internal Medicine Critical Care Medicine
DX: R09.89 Other specified symptoms and signs involving the circulatory and respiratory systems (principal); I10 Essential (primary) hypertension
CPT/HCPCS: 99204

== ENCOUNTER → 2024-12-19 13:27 | Outpatient (BNVA) | payer OTHER, SELFPAY | PROVIDERS: PCP Internal Medicine; Visit Provider Internal Medicine Critical Care Medicine ==

== ENCOUNTER → 2024-12-24 09:32 | Outpatient (BNVA) | payer OTHER, SELFPAY | PROVIDERS: PCP Internal Medicine; Visit Provider Internal Medicine Critical Care Medicine ==

== ENCOUNTER → 2024-12-25 09:30 | Outpatient (BNVA) | payer OTHER, SELFPAY | PROVIDERS: PCP Internal Medicine; Visit Provider Internal Medicine Critical Care Medicine | DX: Z45.2 Encounter for adjustment and management of vascular access device (principal); R03.0 Elevated blood-pressure reading, without diagnosis of hypertension | CPT/HCPCS: 93786; 93788 ==

== ENCOUNTER 2025-01-16 07:08 | Outpatient (REF) | payer OTHER, SELFPAY ==
[2025-01-16 11:11] LABS: Anion Gap 12 (12-20); Blood Urea Nitrogen 13 mg/dL (9-16); Calcium 9.2 mg/dL (8.4-10.2); Carbon Dioxide 25 mmol/L (22-29); Chloride 107 mmol/L (96-108); Estimated Glomerular Filt Rate > 60; Potassium 3.8 mmol/L (3.3-5.1); Sodium 140 mmol/L (135-145)
[2025-01-16 11:26] LABS: Microalbum/Creatinine Ratio Ur 70.4 ug/mg cr (<30)
[2025-01-23 16:14] LABS: Plasma Renin Activity 6.12 ng/mL/h (0.25-5.82)
== END 2025-01-16 07:09 | disposition home or self-care (01) ==
LOC: HO.HMGCLDS 07:08
PROVIDERS: PCP Internal Medicine; Visit Provider Internal Medicine Critical Care Medicine
DX: R09.89 Other specified symptoms and signs involving the circulatory and respiratory systems (principal); I10 Essential (primary) hypertension
CPT/HCPCS: 36415; 80048; 82043; 82088; 82570; 84443

== ENCOUNTER 2025-01-22 09:40 | Outpatient (AMB) | payer OTHER, SELFPAY ==
--- NOTE | 2025-01-22 09:44 | HO.NEPHOV_ITS ---
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 Hypertension since past 2 years; states its normal at home increases when under stress or doctors office. We did a 24 hour ambulatory blood pressure monitoring where his average blood pressure pressures was 126/73. 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 He also has hypokalemia with potassium of 3.6. Pending renin aldosterone levels Has mild proteinuria He has a history of pyeloplasty when he was a child. 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 [employer] Current occupational exposures/hazards: No Cognitive needs: No Hearing needs: No Vision needs: No Review of Systems Const Details: Const Denies body ache, no fever Eyes Denies blurry vision and Denies change in vision ENT Denies bleeding gums and Denies change in voice Card Denies chest pain and Denies leg ulcers Resp Denies cough and Denies excessive phlegm production GI Denies abdominal pain and Denies bloating Denies hematuria, Denies urinary frequency and Denies difficulty voiding Musc Denies abnormal gait Neuro Denies Neuro-related abnormal movements, Denies abnormal gait and Denies behavioral changes Psych Denies behavioral changes and Denies change in appetite Endo Denies change in body appearance, Denies cold intolerance Physical Exam Vital Signs: Last Vital Signs Pulse 91 01/22/25 09:45 BP 139/84 01/22/25 09:45 Pulse Ox 82 L 01/22/25 09:45 Oxygen Delivery Method Room Air 01/22/25 09:45 BMI result Body Mass Index 36.3 General: Not in any acute distress, comfortable, sitting on the chair Nutritional Appearance: well nourished and overweight Eyes: appearance normal, both eyes and all related structures; Alignment and Position: alignment normal and position normal Neck: No lymphadenopathy, no thyromegaly Resp: bilateral air entry equal, no added sounds present Cardio: Regular rate, regular rhythm; Heart sounds: S1 normal heart sound present and S2 normal heart sound present, no edema GI: soft, nontender, no guarding, no hepatosplenomegaly : bladder normal to inspection, bladder normal to palpation, no renal angle tenderness Skin: no rashes or lesions noted and elasticity normal Neuro: oriented to person, oriented to place, oriented to time and moves all extremities Results Reviewed Nephrology Results: Hgb, (14.0-18.0) 13.7 g/dl L 12/08/24 WBC, (4.8-10.8) 8.8 X10*3/uL 12/08/24 Plt Count, (160-400) 240 X10*3/uL 12/08/24 Sodium, (135-145) 140 mmol/L 01/16/25 Potassium, (3.3-5.1) 3.8 mmol/L 01/16/25 Chloride, (96-108) 107 mmol/L 01/16/25 Carbon Dioxide, (22-29) 25 mmol/L 01/16/25 BUN, (9-16) 13 mg/dL 01/16/25 Creatinine, (0.5-1.4) 0.79 mg/dL 01/16/25 Calcium, (8.4-10.2) 9.2 mg/dL 01/16/25 Urine Protein, (Neg-Trace) Trace mg/dL 12/08/24 Urine Creatinine 132.10 mg/dL 01/16/25 Assessment & Plan Assessment & Plan (1) Essential hypertension: Code(s): I10 - Essential (primary) hypertension Category: Medical (2) Labile hypertension: Code(s): R09.89 - Other specified symptoms and signs involving the circulatory and respiratory systems Category: Medical (3) Proteinuria: Code(s): R80.9 - Proteinuria, unspecified Category: Medical Plan Labile blood pressures: We did a 24 hour ambulatory blood pressure monitoring where his average blood pressure pressures was 126/73. 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 Mom has HTN, one of the two brothers has HTN. He has hypokalemia, along with a family history we sent a renin aldosterone levels which is still pending. We will call him with the results, if positive we will get 24 hour urine studies He has a smoker, h/o no CAD, no stroke, lipids are under control, no family history of coronary artery disease. His relative risk reduction of major cardiovascular events is low with 10 year risk of 1.3% and 30 years risk of 8.9%. plan: - target SBP <140/90 given his low risk for CVD. - we will restart candesartan to manage his proteinuria, he would not need it for blood pressure control. - weight reduction, low salt diet, smoking cessation - will get plasma aldosterone and renin levels to look for the ratio off candesartan, TSH ordered - will get renal artery dopplers to rule out renal artery stenosis is renin levels are increased. - will plan for 24 hr sodium, aldosterone and creatinine excretion if renin aldosterone levels are abnormal - avoid any NSAID intake, excessive decongestant intake, herbal preparations intake Proteinuria: - his UACR is 70 mcg/gm - possibly secondary to obesity - will do further workup to rule out other etiologies of proteniura - will restart candesartan 16mg, prescription sent to pharmacy - patient has tried diet and exercises and is not assisting with his weight loss. Given his young age and proteinuria treating his obesity is of prime importance for longevity, this has been explained very well to the patient. We will refer him to weight management clinic for further options. Orders: Orders Hepatitis B,C Profile 3 Months I10 - Essential (primary) hypertension, R09.89 - Other specified symptoms and signs involving the circulatory and respiratory systems, R80.9 - Proteinuria, unspecified RAY Reflex Titer and Pattern 3 Months I10 - Essential (primary) hypertension, R09.89 - Other specified symptoms and signs involving the circulatory and respiratory systems, R80.9 - Proteinuria, unspecified ANCA Vasculitides 3 Months I10 - Essential (primary) hypertension, R09.89 - Other specified symptoms and signs involving the circulatory and respiratory systems, R80.9 - Proteinuria, unspecified Protein Electrophoresis, Serum 3 Months I10 - Essential (primary) hypertension, R09.89 - Other specified symptoms and signs involving the circulatory and respiratory systems, R80.9 - Proteinuria, unspecified UA and rflx microscopic 3 Months I10 - Essential (primary) hypertension, R09.89 - Other specified symptoms and signs involving the circulatory and respiratory systems, R80.9 - Proteinuria, unspecified Creatinine Urine 3 Months I10 - Essential (primary) hypertension, R09.89 - Other specified symptoms and signs involving the circulatory and respiratory systems, R80.9 - Proteinuria, unspecified HIV Ab/Ag 3 Months I10 - Essential (primary) hypertension, R09.89 - Other specified symptoms and signs involving the circulatory and respiratory systems, R80.9 - Proteinuria, unspecified [place]/Lambda [employer] Chain Serum 3 Months I10 - Essential (primary) hypertension, R09.89 - Other specified symptoms and signs involving the circulatory and respiratory systems, R80.9 - Proteinuria, unspecified Microalbumin, Random (w Creat) 3 Months I10 - Essential (primary) hypertension, R09.89 - Other specified symptoms and signs involving the circulatory and respiratory systems, R80.9 - Proteinuria, unspecified Total Protein Urine Random 3 Months I10 - Essential (primary) hypertension, R09.89 - Other specified symptoms and signs involving the circulatory and respiratory systems, R80.9 - Proteinuria, unspecified Medications: Refilled candesartan 16 mg PO DAILY 90 tabs 1RF candesartan 16 mg PO DAILY 90 tabs 1RF Coding Level of Care Code Est Pt Level 4 (87889) Diagnoses Essential hypertension I10 Labile hypertension R09.89 Proteinuria R80.9
[2025-01-22 09:45] VITALS: BP 139/84; PULSE 91; O2SAT 82; BMI 36.3
== END 2025-01-22 10:16 | disposition home or self-care (01) ==
LOC: HO.HKA 09:41
PROVIDERS: PCP Internal Medicine; Visit Provider Internal Medicine Critical Care Medicine
DX: I10 Essential (primary) hypertension (principal); R09.89 Other specified symptoms and signs involving the circulatory and respiratory systems; R80.9 Proteinuria, unspecified
CPT/HCPCS: 99214

== ENCOUNTER 2025-04-03 08:04 | Outpatient (AMB) | payer OTHER, SELFPAY ==
--- NOTE | 2025-04-03 14:03 | A.OFFVIS_ITS ---
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 BMI 36.5: Details: Start time: 1.57pm, End time: 2.37pm ?I spent 35 minutes speaking with the patient on the phone plus an additional 5 minutes reviewing and updating records for a total of 40 minutes HPI Comments Details: Previous weight loss efforts: RD (no weight loss) Wakes up: 5am, Sleeps: 8pm Breakfast: (eggs, yogurt, bread) Lunch: 11am (chicken, potato, rice, beans) Dinner: 5.30pm (same as lunch) Snacks:10am (eshtery protein bar, apple), 4pm (occ fruit) Exercise: none Beverages: Coffee: none, Tea: 1/mth, Soda: none, Juice: (orange juice: 2-3/wk), ETOH: none PFSH Medical History (Updated 04/03/25 @ 14:32 by Britton Chacon MD) BMI 36.0-36.9,adult Obesity Facial dermatitis History of ureteropelvic junction repair Hx of recurrent urinary tract infection Labile hypertension Vitamin D deficiency Hypertriglyceridemia Essential hypertension Hydronephrosis Surgical History (Updated 03/12/25 @ 08:26 by Esmer Gomez CMA) History of pyeloplasty Family History (Updated 03/12/25 @ 08:27 by Esmer Gomez CMA) Mother Hypertension Father No problems noted. Social History Housing: Apartment Alcohol intake: never Patient Tobacco Use Status: Never used Tobacco e-Cigarette/Vaping Use: Never Used service: No Current occupational status: employed Current occupation: [employer] Current occupational exposures/hazards: No Cognitive needs: No Hearing needs: No Vision needs: No Telehealth Telehealth Telehealth Platform: Telephone Location of provider rendering services: practice address Location of patient: address on file Patient Identification confirmed using: Name, : Yes Telehealth method: voice only Patient verbally consented to treatment: Yes Patient verbally consented to billing insurance company: Yes Patient informed of any privacy concerns related to visit: Yes Minutes spent on Phone/Video with Pt.: 40 Assessment & Plan Assessment & Plan (1) Obesity: Code(s): E66.9 - Obesity, unspecified Category: Medical Qualifiers: Obesity type: due to excess calories Obesity classification: adult cla ss 2 (BMI 35 - 39.9) Serious obesity comorbidity presence: with serious comorbidity Body mass index: BMI 36.0-36.9 Qualified Code(s): E66.812 - Obesity, class 2; E66.01 - Morbid (severe) obesity due to excess calories; Z68.36 - Body mass index [BMI] 36.0-36.9, adult Plan: 1. As we discussed, based on your present BMI you are approximately 70lbs overweight. In my opinion, for any weight loss strategy to be successful should have a high probability to help you lose at least 60lbs out of 70lbs of the extra weight you carry. We discussed in detail the available therapeutic options: 1) our lifestyle intervention program that has an average weight loss of 10% in 3 months.?Some patients continue it for longer and have lost over 50lbs but this is not common. Our lifestyle program can be provided by me or by using our software figueroa, the [employer] figueroa. I will provide you with a link to use the figueroa if you choose to do so. We use protein shakes and protein bars to replace some of the meals of the day and cover your appetite better. We will decide together the exact combination. 2) Weight loss medications: these can be used in conjunction with our lifestyle program or you may choose to use them without following a lifestyle program from my program but your own. As we discussed, your insurance most likely will not approve the injections, but a prescription was sent. The medication I use more often is called Zepbound and is one shot per week. My office will do the authorizations and we will train you how to use it properly. We also discussed that you can self pay for the first 3 months and the cost is $249 for the first month and $499 for any other month thereafter. These payments go to the drug company directly and not to us. 3) We also discussed about the Phentermine which is a pill for weight loss. We discussed the potential side-effects of the Phentermine such as irritability, dry mouth, difficulty sleeping, dizziness, numbness in feet and high blood pressure. I asked her to get a blood pressure monitor and measure the blood pressure daily in the morning and evening. She needs to send the blood pressure readings daily and to call the office for blood pressure over 140/80 and she understands that. 4) We also discussed about the lap sleeve gastrectomy. In my opinion this is the best option to solve your problem based on your situation and should be used in conjunction with the two previous options. A good strategy to make this decis ion to proceed with surgery, is to set some goals with the lifestyle intervention and medication options: If you don't lose at least 10lbs the first 6 weeks after starting the program or at least 10% in 3 months. ?I emphasized the importance of close follow-up, adherence to instructions and good communication. The surgery does not replace the need to change your lifestlyle which is the cause of the obesity problem. The surgery provides the motivation to try again to change your lifestyle, it reduces the appetite and make the transition to a better lifestyle easier and doubles the amount of we ight you would lose compared to doing the lifestyle change without the surgery. You will need to be on a liquid diet with protein shakes for 2 weeks before surgery to maximize weight loss and boost your nutritional status to recover better from surgery and also for the first two weeks after surgery to let the stomach heal before we introduce other foods. After the first 2 weeks we will introduce protein bars and soft foods like scrambled eggs, cottage cheese and yogurt and after the 6th week will introduce meat, fish and cooked vegetables in small amounts. Over time you should be able to eat everything in small amounts. Side effects like nausea, vomiting, heartburn or abdominal pain are not common in the practice unless you are not following in the practice. This operation requires lifetime commitment to following in our practice and communication with me. You will much less weight and experience side effects if you don?t communicate or not following in the practice. Complications are rare and in our practice is about 1/10 of the national average. 5) Please send me weight measurements from the body composition scale once you receive it. Medications: New tirzepatide (weight loss) (Zepbound) for 4 weeks 2.5 mg (0.5 mL) subcut QWEEK 2 mL 0RF E66.9 - Obesity, unspecifi ed, I10 - Essential (primary) hypertension, Z68.36 - Body mass index [BMI] 36.0- 36.9, adult
[2025-04-03 14:12] VITALS: BMI 36.5
== END 2025-04-03 14:38 | disposition home or self-care (01) ==
LOC: HO.HBS 08:04
PROVIDERS: PCP Internal Medicine; Visit Provider Surgery
DX: E66.9 Obesity, unspecified (principal); Z68.36 Body mass index [BMI] 36.0-36.9, adult
CPT/HCPCS: 98009

== ENCOUNTER 2025-05-23 07:13 | Outpatient (REF) | payer OTHER, SELFPAY ==
[2025-05-23 12:06] LABS: Appearance Urine Turbid; Glucose Urine UA Negative (Negative); PH 5.5 (5.0-9.0); Specific Gravity - Urine 1.020 (1.005-1.025); UMIC TRIGGER UA YES
[2025-05-23 12:37] LABS: HBS Num1 313.01 mIU/mL (0-7.99); HBc Num1 0.26 S/CO (0.00-0.79); HBsAGNum1 0.42 S/CO (0.00-0.99); HIV Num 1 0.06 S/CO (0.00-0.99); Hepatitis B Surface Antigen Negative (Negative); ~HepC Num1 0.13 S/CO (0.00-0.79); ~Hepatitis B Surface Antibody REACTIVE (Nonreactive); ~Hepatitis C Antibody Nonreactive (Nonreactive)
[2025-05-23 12:42] LABS: Microalbum/Creatinine Ratio Ur 55.3 ug/mg cr (<30); Total Protein Urine Random 28 mg/dL (<12)
[2025-05-25 22:39] LABS: Proteinase 3 PR3 Antibodies <1.0 AI
[2025-05-27 18:03] LABS: Anti Nuclear Antibody Pattern Nuclear, Speckled; Anti Nuclear Antibody Screen POSITIVE (NEGATIVE); Anti Nuclear Antibody Titer 1:80 titer
[2025-05-27 18:13] LABS: Prot Elec - Albumin 4.0 g/dL (3.8-4.8); Prot Elec - Alpha1 0.3 g/dL (0.2-0.3); Prot Elec - Alpha2 0.7 g/dL (0.5-0.9); Prot Elec - Beta 1 0.4 g/dL (0.4-0.6); Prot Elec - Beta 2 0.5 g/dL (0.2-0.5); Prot Elec - Gamma 1.4 g/dL (0.8-1.7); Prot Elec - Total Protein 7.2 g/dL (6.1-8.1)
[2025-05-29 15:03] LABS: Kappa, Serum 360 mg/dL (176-443); Kappa/Lambda Ratio, Serum 1.89 (1.29-2.55); Lambda, Serum 190 mg/dL (91-240)
== END 2025-05-23 07:14 | disposition home or self-care (01) ==
LOC: HO.HMGCLDS 07:13
PROVIDERS: PCP Nurse Practitioner Family; Visit Provider Internal Medicine Critical Care Medicine
DX: Z11.4 Encounter for screening for human immunodeficiency virus [HIV] (principal); Z01.84 Encounter for antibody response examination; I10 Essential (primary) hypertension; R09.89 Other specified symptoms and signs involving the circulatory and respiratory systems; R80.9 Proteinuria, unspecified
CPT/HCPCS: 36415; 81001; 81003; 82043; 82570; 83883; 84156; 84165; 86021; 86038; 86039; 86704; 86706; 86803; 87340; 87389

== ENCOUNTER → 2025-05-27 09:33 | Outpatient (AMB) | payer OTHER, SELFPAY ==
--- NOTE | 2025-05-27 09:37 | HO.NEPHOV ---
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 We did a 24 hour ambulatory blood pressure monitoring where his average blood pressure pressures was 126/73. 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 Has mild proteinuria, so restarted on candesartan He has a history of pyeloplasty when he was a child. 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 Social History Housing: Apartment Alcohol intake: never Patient Tobacco Use Status: Never used Tobacco e-Cigarette/Vaping Use: Never Used service: No Current occupational status: employed Current occupation: [employer] Current occupational exposures/hazards: No Cognitive needs: No Hearing needs: No Vision needs: No Review of Systems Const Details: Const : no body aches, no chills, no excessive sweating and no fatigue Eyes: no blurry vision and no change in vision ENT: no bleeding gums and no change in voice, no dizziness Card: no chest pain, no shortness of breath, no orthopnea, no PND Resp: no cough, no excessive phlegm production, no SOB GI: no abdominal pain and no nausea, no vomiting : no hematuria, no urinary frequency and no difficulty voiding Musc: no abnormal gait, no bone pain Neuro: no abnormal movements, no weakness,no behavioral changes Psych: no behavioral changes and no change in appetite Endo: no change in body appearance and no fatigue Physical Exam General: not in any acute distress, comfortable, sitting on the chair Nutritional Appearance: well nourished and overweight Eyes: normal position, no icterus Neck: No lymphadenopathy, no thyromegaly Resp: bilateral air entry equal, no added sounds present Cardio: normal S1, S2 heard, no murmur heard, no edema GI: soft, nontender, no guarding, no hepatosplenomegaly : bladder normal to inspection, bladder normal to palpation, no renal angle tenderness Skin: no rashes or lesions noted and elasticity normal Neuro: oriented to person, oriented to place, oriented to time and moves all extremities Results Reviewed Nephrology Results: Sodium, (135-145) 140 mmol/L 01/16/25 Potassium, (3.3-5.1) 3.8 mmol/L 01/16/25 Chloride, (96-108) 107 mmol/L 01/16/25 Carbon Dioxide, (22-29) 25 mmol/L 01/16/25 BUN, (9-16) 13 mg/dL 01/16/25 Creatinine, (0.5-1.4) 0.79 mg/dL 01/16/25 Calcium, (8.4-10.2) 9.2 mg/dL 01/16/25 Urine Protein, (Neg-Trace) 30 (1+) mg/dL H 05/23/25 Urine Creatinine 198.60 mg/dL 05/23/25 Assessment & Plan Assessment & Plan (1) Proteinuria: Code(s): R80.9 - Proteinuria, unspecified Category: Medical (2) Obesity (BMI 30-39.9): Code(s): E66.9 - Obesity, unspecified Category: Medical Plan Labile blood pressures: We did a 24 hour ambulatory blood pressure monitoring where his average blood pressure pressures was 126/73. 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 Mom has HTN, one of the two brothers has HTN. He has hypokalemia, along with a family history But his renin is slightly on higher side with aldosterone adequately suppressed which means his volume status is slightly on the lower side. He has a smoker, h/o no CAD, no stroke, lipids are under control, no family history of coronary artery disease. His relative risk reduction of major cardiovascular events is low with 10 year risk of 1.3% and 30 years risk of 8.9%. plan: - target SBP <140/90 given his low risk for CVD. - on candesartan to manage his proteinuria, he would not need it for blood pressure control. - weight reduction, low salt diet, smoking cessation - normal plasma aldosterone and renin levels, TSH normal - avoid any NSAID intake, excessive decongestant intake, herbal preparations intake Proteinuria: - his UACR is 70 mcg/gm - possibly secondary to obesity - hepatitis panel, HIV, Anca negative; pending RAY, SPEP, serum free light chains. - will restart candesartan 16mg - patient has tried diet and exercises and is not assisting with his weight loss. Given his young age and proteinuria treating his obesity is of prime importance for longevity, this has been explained very well to the patient. 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 Will prescribe him Monjauro control proteinuria by decreasing his weight. Has a persistent WBC in his urine along with leukocyte esterase positive possibly secondary to history of pelvicalyceal surgery. We will get renal ultrasound and renal artery Doppler. No symptoms of infection, if any symptoms will prescribe him antibiotics Orders: Orders UA and rflx microscopic 4 Months E66.9 - Obesity, unspecified, R80.9 - Proteinuria, unspecified Creatinine Urine 4 Months E66.9 - Obesity, unspecified, R80.9 - Proteinuria, unspecified US renal BI 3 Weeks E66.9 - Obesity, unspecified, R80.9 - Proteinuria, unspecified Urine Eosinophil 4 Months R80.9 - Proteinuria, unspecified Microalbumin, Random (w Creat) 4 Months E66.9 - Obesity, unspecified, R80.9 - Proteinuria, unspecified Total Protein Urine Random 4 Months E66.9 - Obesity, unspecified, R80.9 - Proteinuria, unspecified US renal doppler 3 Weeks E66.9 - Obesity, unspecified, R80.9 - Proteinuria, unspecified Medications: New tirzepatide (Mounjaro) 5 mg (0.5 mL) subcut QWEEK 6 mL 2RF 12 weeks E66.9 - Obesity, unspecified, R80.9 - Proteinuria, unspecified Coding Level of Care Code Est Pt Level 4 (00899) Diagnoses Proteinuria R80.9 Obesity (BMI 30-39.9) E66.9
[2025-05-27 09:38] VITALS: BP 122/80; PULSE 77; O2SAT 96; BMI 35.9
== END ==
LOC: HO.HKA 09:34
PROVIDERS: PCP Internal Medicine; Visit Provider Internal Medicine Critical Care Medicine
DX: R80.9 Proteinuria, unspecified (principal); E66.9 Obesity, unspecified
CPT/HCPCS: 99214